=== PATIENT | female | born 1985 | race Caucasian/White ===

== ENCOUNTER 2017-10-04 06:33 | Inpatient (IN) | payer BC, OTHER ==
[2017-10-03 15:23] VITALS: BMI 23.5
[2017-10-04] MEDS ORDERED: PROPOFOL 20 ML ONE ×2 (07:24)
[2017-10-04] MEDS ORDERED: MIDAZOLAM HCL 2 MG/2 ML SINGLE DOSE VIAL ONE (07:24)
--- NOTE | 2017-10-04 07:47 | HP ---
History & Physical Update - History History: No Change - Physical Physical: No Change - Assessment Assessment: No Change - Plan Plan: No Change (No changes since 10/02/17 Consent signed and witnessed)
[2017-10-04] MEDS ORDERED: OXYTOCIN 10 UNITS/ML VIAL ONE ×2 (08:13→08:48)
[2017-10-04] MEDS ORDERED: DEXAMETHASONE SOD PHOSPHATE 4 MG/1 ML VIAL ONE (08:14)
[2017-10-04] MEDS ORDERED: ceFAZolin SODIUM 1 GM VIAL ONE (08:29)
[2017-10-04] MEDS ORDERED: ceFAZolin SODIUM 1 GM VIAL IVPB ONE (08:30)
[2017-10-04] MEDS ORDERED: KETOROLAC TROMETHAMINE 30 MG/1 ML VIAL ONE (08:41)
--- NOTE | 2017-10-04 09:16 | OP ---
Operative Note - Note: Operative Date: 10/04/17 Pre-Operative Diagnosis: 32 yo with IVF , IUFD @ 17wks Operation: Dialation and evacuation Findings: Macerated parts, removed Post-Operative Diagnosis: Same as Pre-op Surgeon: Shani Plasencia [employer] Tanker Driver: Rogelio Cordero Anesthesiologist/DEALER SUPPORT TECHNICIAN: Sohan Thomason Anesthesia: General Specimens Removed: Products of conseption Estimated Blood Loss (mls): 1,000 Drains, Volume Out (mls): 100 Fluid Volume Replaced (mls): 1,300 Operative Report Dictated: Yes
[2017-10-04] MEDS ORDERED: oxyCODONE HCL 5 MG TABLET PO PRN (09:21)
[2017-10-04] MEDS ORDERED: ONDANSETRON 4 MG/2 ML VIAL IVPUSH PRN (09:21)
[2017-10-04] MEDS ORDERED: IBUPROFEN 800 MG/8 ML IJ IVPB PRN (09:21)
[2017-10-04] MEDS ORDERED: IBUPROFEN 600 MG TABLET (FP) PO PRN (09:21)
[2017-10-04] MEDS ORDERED: LACTATED RINGERS SOLUTION 1,000 ML IV SCH (09:30)
[2017-10-04] MEDS ORDERED: ELECTROLYTE-148 SOLN 1,000 ML IV SCH (09:30)
[2017-10-04 10:29] LABS: HEMATOCRIT 26.8 % (32.4-45.2); HEMOGLOBIN 8.7 GM/dL (10.7-15.3); MCH 27.4 pg (25.7-33.7); MCHC 32.5 g/dl (32.0-36.0); MEAN CELL VOLUME 84.2 fl (80-96); MEAN PLT VOLUME 7.9 fl (7.5-11.1); PLATELET COUNT 218 K/MM3 (134-434); RBC 3.18 M/mm3 (3.60-5.2); RDW 16.6 % (11.6-15.6)
[2017-10-04 11:50] LABS: INR 1.15 (0.82-1.09)
[2017-10-04] MEDS ORDERED: MISOPROSTOL 200 MCG TABLET NR ONE (12:00)
[2017-10-04 13:41] LABS: BASO % 0.1 % (0-2.0); EOS % 0.2 % (0-4.5); HEMATOCRIT 22.5 % (32.4-45.2); HEMOGLOBIN 7.4 GM/dL (10.7-15.3); LYMPH % 4.7 % (8-40); MCH 27.5 pg (25.7-33.7); MCHC 32.8 g/dl (32.0-36.0); MEAN CELL VOLUME 83.9 fl (80-96); MEAN PLT VOLUME 7.8 fl (7.5-11.1); MONO % 2.9 % (3.8-10.2); NEUT % 92.1 % (42.8-82.8); PLATELET COUNT 232 K/MM3 (134-434); RBC 2.68 M/mm3 (3.60-5.2); RDW 16.7 % (11.6-15.6); WHITE BLOOD COUNT 25.7 K/mm3 (4.0-10.0)
[2017-10-04 15:14] LABS: INR 1.15 (0.82-1.09)
[2017-10-04 15:17] LABS: ACTIVATED PTT 25.8 SECONDS (26.9-34.4)
--- NOTE | 2017-10-04 15:37 | PN ---
Progress Note (SOAP) - Subjective Chief Complaint: No complaints History of Present Illness: POD#1, s/p D&E with moderate vaginal bleeding, mild/evolving DIC. Pt is in PACU undergoing a blood transfusion. - Current Medications Current Medications: Active Medications Fentanyl (Sublimaze Injection -) 50 mcg IVPUSH [id number] PRN PRN Reason: PAIN-PACU ORDER X 4 DOSES ONLY Parenteral Electrolytes (Plasma-Lyte 148 -) 1,000 mls @ 125 mls/hr IV ASDIR OSCAR Lactated Ringer's (Lactated Ringers Solution) 1,000 mls @ 75 mls/hr IV ASDIR SOCAR Ibuprofen (Motrin -) 600 mg PO Q6H PRN PRN Reason: FEVER Ibuprofen (Caldolor Injection -) 800 mg IVPB Q6H PRN PRN Reason: PAIN LEVEL 1-5 Ondansetron HCl (Zofran Injection) 4 mg IVPUSH Q6H PRN PRN Reason: NAUSEA Oxycodone HCl (Roxicodone -) 5 mg PO Q4H PRN PRN Reason: PAIN LEVEL 6-10 - Objective Vital Signs: Vital Signs Temperature 97.6 F 10/04/17 09:18 Pulse Rate 70 10/04/17 13:00 Respiratory Rate 18 10/04/17 13:00 Blood Pressure 112/70 10/04/17 13:00 O2 Sat by Pulse Oximetry (%) 100 10/04/17 13:00 Constitutional: Yes: Well Nourished, No Distress, Calm Eyes: Yes: WNL, Conjunctiva Clear, EOM Intact HENT: Yes: WNL, Atraumatic, Normocephalic Neck: Yes: WNL, Supple, Trachea Midline Cardiovascular: Yes: WNL, Regular Rate and Rhythm Respiratory: Yes: WNL, Regular, CTA Bilaterally Gastrointestinal: Yes: WNL, Normal Bowel Sounds, Soft ...Rectal Exam: Yes: Deferred Genitourinary: Yes: Vaginal Bleeding (moderate) ....Post : Yes: Uterus firm, Uterus non-tender Breast(s): Yes: WNL Musculoskeletal: Yes: WNL Extremities: Yes: WNL Peripheral Pulses WNL: Yes Edema: No Integumentary: Yes: WNL Neurological: Yes: WNL, Alert, Oriented ...Motor Strength: Yes: WNL Psychiatric: Yes: WNL, Alert, Oriented Labs Lab Results: CBC, BMP 10/04/17 13:00 Assessment/Plan 32 yo P0 s/p D&E for IUFD at 17 wks with hemorrhage, anemia, and evolving DIC. 1. postop- stable and appears clinically well. 2. DIC- appears mild, but may be contributing to bleeding. Plan to: Follow serial labs Strict I/O, Ledbetter cath Consult Heme/Onc for blood products replacement 3. Anemia- continue PRBC 4. Admit to Telemetry. No need for ICU at this time.
[2017-10-04] MEDS ORDERED: D5W-LR W/ 20 UNITS OXYTOCIN 20 UNIT/1,000 ML INFUS.BAG IV SCH (16:00)
[2017-10-04] MEDS ORDERED: METHYLERGONOVINE MALEATE 0.2 MG/1 ML AMP IM PRN (16:05)
--- NOTE | 2017-10-04 18:11 | CONSULT ---
Consult Consult Specialty:: Hematology - History of Present Illness History of Present Illness: 32 yo P0 s/p D&E for IUFD at 17 wks with hemorrhage, anemia, and evolving DIC. Hematology consulted for the above. - Past Medical History ...LMP: 06/01/17 - Alcohol/Substance Use Hx Alcohol Use: No - Smoking History Smoking history: Never smoked Home Medications - Allergies Allergies/Adverse Reactions: Allergies Allergy/AdvReac Type Severity Reaction Status Date / Time No Known Allergies Allergy Verified 10/04/17 07:12 - Home Medications Home Medications: Ambulatory Orders Prenat 115/Iron Fum/Folic/Dss [ 19 Tablet] 1 each PO DAILY 10/03/17 Methylergonovine Maleate [Methergine] 0.2 mg PO TID 2 Days #6 tablet 10/04/17 metroNIDAZOLE [Flagyl -] 500 mg PO BID 5 Days #10 tablet 10/04/17 Review of Systems - Review of Systems Gastrointestinal: reports: Abdominal Pain Genitourinary: reports: Vaginal Bleeding Hematology/Lymphatic: reports: Excessive Bleeding Physical Exam Vital Signs: Vital Signs Temperature 97.6 F 10/04/17 09:18 Pulse Rate 72 10/04/17 16:30 Respiratory Rate 17 10/04/17 16:30 Blood Pressure 100/58 10/04/17 16:30 O2 Sat by Pulse Oximetry (%) 100 10/04/17 16:30 Constitutional: Yes: Other (pale, anxious) Eyes: Yes: Other (pale) HENT: Yes: WNL Neck: Yes: WNL Cardiovascular: Yes: WNL Respiratory: Yes: WNL Gastrointestinal: Yes: Normal Bowel Sounds, Soft, Tenderness Musculoskeletal: Yes: WNL Extremities: Yes: WNL Edema: No Neurological: Yes: Alert, Oriented Psychiatric: Yes: Alert Labs: CBC, BMP 10/04/17 13:00 INR, PTT INR 1.15 (0.82-1.09) H 10/04/17 14:35 Fibrinogen 112.0 mg/dL (238-498) L 10/04/17 14:35 Assessment/Plan Post-OP DIC s/p IUFD at 17 weeks D/E done, underlying cause treated Product replacement : s'/p One unit PRBC 2 U Cryo , d/w blood bank, products available. PT/PTT/Platelets : stable , to receive FFP. need secure second IV site CLOSE monitoring of Labs ( q4-6hrs ) Monitor for fluid overload in the setting of the above. d.w pt in detail d/w RN and CUSTOMER ACCOUNT EXECUTIVE physician . will follow closely.
[2017-10-05 00:59] LABS: BASO % 0.3 % (0-2.0); EOS % 0.4 % (0-4.5); HEMATOCRIT 23.2 % (32.4-45.2); MCH 28.9 pg (25.7-33.7); MCHC 34.8 g/dl (32.0-36.0); MONO % 8.2 % (3.8-10.2); NEUT % 78.1 % (42.8-82.8); PLATELET COUNT 182 K/MM3 (134-434); RBC 2.79 M/mm3 (3.60-5.2); RDW 15.7 % (11.6-15.6); WHITE BLOOD COUNT 14.4 K/mm3 (4.0-10.0)
[2017-10-05 01:15] LABS: INR 1.04 (0.82-1.09); PROTHROMBIN TIME (PATIENT) 11.8 SEC (9.98-11.88)
[2017-10-05 01:18] LABS: ACTIVATED PTT 27.4 SECONDS (26.9-34.4)
--- NOTE | 2017-10-05 05:27 | HOSP ---
Subjective - Review of Symptoms Events since last encounter: Called by RN who reports that while pt was receiving her 2nd unit of FFP she started itching and developed a rash. Subjective: Pt denies any SOB, trouble breathing, chest or back pain. States rash is improved s/p receiving benadryl 15-20 min ago. Itching is slowing improving. Physical Examination Vital Signs: Vital Signs Temperature 98.6 F 10/05/17 02:00 Pulse Rate 60 10/05/17 02:00 Respiratory Rate 18 10/05/17 02:00 Blood Pressure 104/51 10/05/17 02:00 O2 Sat by Pulse Oximetry (%) 100 10/04/17 17:15 Constitutional: Yes: Calm Cardiovascular: Yes: Regular Rate and Rhythm, S1, S2. No: Murmur, Rub Respiratory: Yes: CTA Bilaterally Gastrointestinal: Yes: Normal Bowel Sounds, Soft Integumentary: Yes: Rash (erythematous, indurated, patchy rash to skin, whole body) Labs: CBC, BMP 10/05/17 00:30 Hospitalist Encounter Assessment: Rash while receiving transfusion - r/o transfusion reaction, protocol followed - benadryl given IVP - RN to notify PCP.
--- NOTE | 2017-10-05 08:43 | PN ---
Progress Note (short form) - Note Progress Note: Anesthesia postop note 32 y/o F s/p GA for D&E POD#1, vss, aaox3, pain well controlled, eating breakfast No anesthesia complications.
[2017-10-05 08:55] LABS: BASO % 0.4 % (0-2.0); EOS % 1.1 % (0-4.5); HEMATOCRIT 24.1 % (32.4-45.2); HEMOGLOBIN 8.6 GM/dL (10.7-15.3); LYMPH % 19.1 % (8-40); MCH 29.7 pg (25.7-33.7); MCHC 35.8 g/dl (32.0-36.0); MEAN CELL VOLUME 82.8 fl (80-96); MEAN PLT VOLUME 7.5 fl (7.5-11.1); MONO % 6.7 % (3.8-10.2); NEUT % 72.7 % (42.8-82.8); PLATELET COUNT 177 K/MM3 (134-434); RBC 2.91 M/mm3 (3.60-5.2); WHITE BLOOD COUNT 10.7 K/mm3 (4.0-10.0)
[2017-10-05 08:57] LABS: INR 0.98 (0.82-1.09); PROTHROMBIN TIME (PATIENT) 11.1 SEC (9.98-11.88)
[2017-10-05 09:00] LABS: ACTIVATED PTT 26.5 SECONDS (26.9-34.4)
--- NOTE | 2017-10-05 10:29 | PN ---
Progress Note (short form) - Note Progress Note: Patient seen and examined. Overnight events noted. reaction to FFP Now back to baseline. vaginal bleeding moderate. No petechiae or bleeding from IV sites reported. O/E: Constitutional: Yes: NAD Eyes: Yes: Other (pale) HENT: Yes: WNL Neck: Yes: WNL Cardiovascular: Yes: WNL Respiratory: Yes: WNL Gastrointestinal: Yes: Normal Bowel Sounds, Soft, Tenderness Musculoskeletal: Yes: WNL Extremities: Yes: WNL Edema: No Neurological: Yes: Alert, Oriented Skin: No petechiae Labs: Temp Pulse Resp BP Pulse Ox 98.1 F 68 20 102/58 100 10/05/17 06:00 10/05/17 06:00 10/05/17 06:00 10/05/17 06:00 10/04/17 17:15 CBC, BMP 10/05/17 08:20 Current Medications Generic Name Dose Route Start Last Admin Trade Name Freq PRN Reason Stop Dose Admin Dextrose/Lactated Ringer's 20 unit in 1,000 mls @ 125 mls/hr 10/04/17 16:00 10/04/17 22:09 Pitocin 20 Units In D5-Lr - IV 10/05/17 23:59 125 mls/hr ASDIR OSCAR Administration Ibuprofen 600 mg 10/04/17 09:21 Motrin - PO Q6H PRN FEVER Ibuprofen 800 mg 10/04/17 09:21 Caldolor Injection - IVPB Q6H PRN PAIN LEVEL 1-5 Methylergonovine Maleate 0.2 mg 10/04/17 16:05 10/04/17 16:30 Methergine Injection - IM 0.2 mg Q4H PRN Administration EXCESSIVE BLEEDING Ondansetron HCl 4 mg 10/04/17 09:21 Zofran Injection IVPUSH Q6H PRN NAUSEA Oxycodone HCl 5 mg 10/04/17 09:21 Roxicodone - PO Q4H PRN PAIN LEVEL 6-10 Early DIC; now resolving ( s/p IUFD s/p D/E ) s/p PRBC/FFP/Cryo Now fibrinogen consistently >150, no further cryo repeat labs in the afternoon. CBC in the afternoon, if hgd down trend <8, will give one more unit of PRBC will pre-medicate with further product administration. leucocytosis: afebrile, monitor , likely reactive d/w pt./RN
--- NOTE | 2017-10-05 10:43 | PN ---
Progress Note (SOAP) - Subjective History of Present Illness: Patient without acute complaints. Had episode of itching overnight during transfusion of FFP, s/p evaluation by hospitalist - had transfusion reaction, s/p IV benadryl. Reports continues to have mild L eye swelling, otherwise doing well. Denies any shortness of breath or difficulty breathing Reports tolerating oral intake without nausea or vomiting. Ambulating without dizziness. Denies fevers or chills. Passing flatus. Denies pain. Scant bleeding. - Current Medications Current Medications: Active Medications Dextrose/Lactated Ringer's (Pitocin 20 Units In D5-Lr -) 20 unit in 1,000 mls @ 125 mls/hr IV ASDIR OSCAR Stop: 10/05/17 23:59 Last Admin: 10/04/17 22:09 Dose: 125 mls/hr Ibuprofen (Motrin -) 600 mg PO Q6H PRN PRN Reason: FEVER Ibuprofen (Caldolor Injection -) 800 mg IVPB Q6H PRN PRN Reason: PAIN LEVEL 1-5 Methylergonovine Maleate (Methergine Injection -) 0.2 mg IM Q4H PRN PRN Reason: EXCESSIVE BLEEDING Last Admin: 10/04/17 16:30 Dose: 0.2 mg Ondansetron HCl (Zofran Injection) 4 mg IVPUSH Q6H PRN PRN Reason: NAUSEA Oxycodone HCl (Roxicodone -) 5 mg PO Q4H PRN PRN Reason: PAIN LEVEL 6-10 - Objective Vital Signs: Vital Signs Temperature 98.1 F 10/05/17 06:00 Pulse Rate 68 10/05/17 06:00 Respiratory Rate 20 10/05/17 06:00 Blood Pressure 102/58 10/05/17 06:00 O2 Sat by Pulse Oximetry (%) 100 10/04/17 17:15 Constitutional: Yes: Well Nourished, No Distress, Calm Cardiovascular: Yes: Regular Rate and Rhythm Respiratory: Yes: Regular, CTA Bilaterally Gastrointestinal: Yes: Normal Bowel Sounds, Soft. No: Tenderness Genitourinary: Yes: Vaginal Bleeding (mild pink blood on pad, no bleeding on palpation of fundus) Peripheral Pulses WNL: Yes Edema: No Neurological: Yes: Alert, Oriented ...Motor Strength: Yes: WNL Psychiatric: Yes: Alert, Oriented Labs Lab Results: CBC, BMP 10/05/17 08:20 Assessment/Plan 32 yo s/p D&E for IUFD at 17 wk complicated by hemorrhage/early DIC s/p 2 u PRBC , 2 uFFP,2 cryoprecipitate 1. Appreciate Hematology consult 2. Anemia / Vaginal bleeding - Vaginal bleeding stable, H/H currently stable Will monitor afternoon labs, plan for transfusion per Heme 3. - s/p [place] with strict I/o Plan for DC whatley today 4. Will continue to monitor
[2017-10-05 13:56] LABS: BASO % 0.4 % (0-2.0); EOS % 1.7 % (0-4.5); HEMOGLOBIN 8.8 GM/dL (10.7-15.3); LYMPH % 19.1 % (8-40); MEAN PLT VOLUME 7.6 fl (7.5-11.1); MONO % 7.2 % (3.8-10.2); NEUT % 71.6 % (42.8-82.8); PLATELET COUNT 189 K/MM3 (134-434); RBC 3.01 M/mm3 (3.60-5.2); RDW 16.2 % (11.6-15.6); WHITE BLOOD COUNT 11.2 K/mm3 (4.0-10.0)
[2017-10-05 14:07] LABS: INR 0.94 (0.82-1.09); PROTHROMBIN TIME (PATIENT) 10.6 SEC (9.98-11.88)
[2017-10-05 14:16] VITALS: BP 97/61; PULSE 74; TEMP 98.2
--- NOTE | 2017-10-06 09:19 | PATH ---
Surgical Pathology Report Patient Name: MI GRANADOS Med. Rec. #: [id number] /Age/Gender: 1985 (Age: 32) / F Account: [id number] Location: 4 W TELEMETRY U Taken: 10/04/2017 Received: 10/04/2017 Reported: 10/06/2017 Physicians: Shani Plasencia M.D. Specimen(s) Received PRODUCTS OF CONCEPTION Clinical History Intrauterine demise 17 weeks Final Diagnosis UTERINE CONTENTS, EVACUATION: CHORIONIC VILLI AND PORTIONS OF SOMATIC TISSUE CONSISTENT WITH PRODUCTS OF CONCEPTION, 17 WEEKS GESTATIONAL AGE BY HISTORY. Electronically Signed Karsten Kee M.D. Gross Description Received in formalin labelled "products of conception" is partially 550 gram aggregate of clotted blood, hemorrhagic tissue fragments, and portions of somatic tissue. No grossly hydropic areas are identified. [employer]en[employer] Admin sections are submitted in 4 cassettes. [facility]/10/04/2017 [facility]/10/04/2017
--- NOTE | 2017-10-09 13:00 | OP ---
DATE OF OPERATION: 10/04/2017 PREOPERATIVE DIAGNOSIS: A 32-year-old with in vitro fertilization , intrauterine demise at 17 weeks. OPERATION: Dilation and evacuation. POSTOPERATIVE DIAGNOSIS: A 32-year-old with in vitro fertilization , intrauterine demise at 17 weeks. FINDINGS: Macerated fetus. SURGEON: Shani Plasencia MD MEDIA RELATIONS SPECIALIST: Rogelio Cordero MD ANESTHESIOLOGIST: Sohan Thomason DO ANESTHESIA: General. SPECIMENS: Removed products of conception. DESCRIPTION OF OPERATIVE PROCEDURE: After assuring informed consent, the patient was brought to the operating room where she was placed in dorsal lithotomy position. Perineum and vagina were prepped in sterile fashion and draped. Cervix was gradually dilated to accommodate 12-gauge plastic curette. The personnel technician was present in the operating room, and the entire procedure was sonographically guided. The plastic curette was introduced into the uterus, and suction was activated. Intrauterine contents were aspirated, removed with the polyp forceps, and the uterus was suctioned again. All of that was performed under direct sonographic guidance. Subsequently, sharp curettage was performed to assure that the uterus was empty, and the uterus was suctioned once more with plastic curette. The products of conception were sent for pathology. Pitocin was administered in the operating room as well as the Methergine. Estimated blood loss was 1000 mL. The patient received 1300 mL of IV fluids and drained 100 mL of urine. The uterus was firm and contracted at the end of the procedure. All instruments and sponges were removed from the vagina and the cervix, which was previously articulated with a single-tooth tenaculum. The patient was brought to the recovery room in stable condition. Emily [id number]
== END 2017-10-05 17:02 | disposition home or self-care (01) | DRG 767 ==
LOC: JASU-SURG 06:33 → JSAMEDAYSX 15:31 → J4W 17:45
PROVIDERS: ADMIT Obstetrics & Gynecology; ATTEND Obstetrics & Gynecology
PROC: 30233K1 Transfusion of Nonautologous Frozen Plasma into Peripheral Vein, Percutaneous Approach (ICD-10-PCS; 2017-10-04)
PROC: 30233N1 Transfusion of Nonautologous Red Blood Cells into Peripheral Vein, Percutaneous Approach (ICD-10-PCS; 2017-10-04)
PROC: 10D17ZZ Extraction of Products of Conception, Retained, Via Natural or Artificial Opening (ICD-10-PCS; principal; 2017-10-04 07:30)
DX: O36.4XX0 Maternal care for intrauterine death, not applicable or unspecified (principal); Z37.1 Single stillbirth; O72.1 Other immediate postpartum hemorrhage; Z3A.17 17 weeks gestation of pregnancy; D64.9 Anemia, unspecified; H02.846 Edema of left eye, unspecified eyelid; T80.89XA Other complications following infusion, transfusion and therapeutic injection, initial encounter; R21 Rash and other nonspecific skin eruption
CPT/HCPCS: 36415; 36430; 36511; 76856-TC; 76998-TC; 83615; 85025; 85027; 85384; 85610; 85730; 86078; 86850; 86900; 86901; 86922; 88305-TC; 94760; P9012; P9017; P9038; P9058

== ENCOUNTER 2018-12-02 18:50 | Inpatient (IN) | payer BC | END 2018-12-03 20:29 | disposition home or self-care (01) | LOC: JLDR 18:50 ==

== ENCOUNTER 2018-12-10 19:00 | Inpatient (IN) | payer BC, OTHER | END 2018-12-13 14:00 | disposition home or self-care (01) | LOC: JLDR 19:00 → J3W 12-11 14:17 ==

== ENCOUNTER 2023-02-22 23:15 | Inpatient (IN) | payer BC, OTHER ==
[2023-02-23] MEDS ORDERED: OXYTOCIN 30 UNITS in 0.9% NS 30 UNIT/500 ML INFUS.BAG IVPB SCH (01:30)
[2023-02-23] MEDS: ELECTROLYTE-148 SOLN 1,000 ML IV SCH ×2 (02:00→06:30)
[2023-02-23] MEDS ORDERED: OXYTOCIN 30 UNITS in 0.9% NS 30 UNIT/500 ML INFUS.BAG IVPB ONE (02:31)
[2023-02-23 03:25] LABS: BASO % 0.4 % (0-2.0); EOS % 0.7 % (0-4.5); HEMATOCRIT 31.5 % (32.4-45.2); LYMPH % 21.1 % (8-40); MCH 31.6 pg (25.7-33.7); MEAN CELL VOLUME 90.1 fl (80-96); MEAN PLT VOLUME 9.6 fl (7.5-11.1); MONO % 8.5 % (3.8-10.2); NEUT % 69.3 % (42.8-82.8); PLATELET COUNT 163 10^3/uL (134-434); RBC 3.49 M/mm3 (3.60-5.2); RDW 13.4 % (11.6-15.6); WHITE BLOOD COUNT 10.1 K/mm3 (4.0-10.0)
[2023-02-23 03:39] LABS: INR 0.91 (0.83-1.09); PROTHROMBIN TIME (PATIENT) 10.6 SEC (9.7-13.0)
[2023-02-23 03:42] LABS: ACTIVATED PTT 28.4 SECONDS (25.2-36.5)
[2023-02-23 03:51] LABS: POTASSIUM 3.9 mmol/L (3.5-5.1)
[2023-02-23 03:52] LABS: CALCIUM 8.3 mg/dL (8.5-10.1)
[2023-02-23 03:53] LABS: BLOOD UREA NITROGEN 11.5 mg/dL (7-18)
[2023-02-23 03:56] LABS: CREATININE 0.6 mg/dL (0.55-1.3)
[2023-02-23 04:50] LABS: HIV INTERPRETATION NEGATIVE (NEGATIVE)
[2023-02-23 06:13] VITALS: BMI 30.2
[2023-02-23] MEDS ORDERED: PHENYLEPHRINE HCL 10 MG/1 ML SINGLE DOSE VIAL ONE (08:08)
[2023-02-23] MEDS ORDERED: ONDANSETRON 4 MG/2 ML VIAL ONE (08:08)
[2023-02-23] MEDS ORDERED: KETOROLAC TROMETHAMINE 60 MG/2 ML VIAL ONE (08:08)
[2023-02-23] MEDS ORDERED: morphine SULFATE/PF 1 MG/2 ML (2cc Syringe - QUVA) ONE (08:08)
[2023-02-23] MEDS ORDERED: OXYTOCIN 10 UNITS/ML VIAL ONE (08:08)
[2023-02-23] MEDS ORDERED: FENTANYL CITRATE/PF 50 MCG/ML VIAL ONE (08:09)
[2023-02-23] MEDS ORDERED: ceFAZolin SODIUM 1 GM VIAL ONE (08:31)
[2023-02-23 09:37] LABS: CORD BASE EXCESS -5.6 mmol/L (0-2); CORD HCO3 23.1 mmHg (20-29); CORD PCO2 57.5 mmHg (30-78); CORD pH 7.221 (7.14-7.44)
[2023-02-23] MEDS ORDERED: SENNOSIDES/DOCUSATE COMBO (SENNA PLUS) TABLET (UD) PO PRN (09:40)
[2023-02-23] MEDS ORDERED: ACETAMINOPHEN 325 MG TABLET (FP) PO PRN (09:40)
[2023-02-23] MEDS ORDERED: ONDANSETRON 4 MG/2 ML VIAL IVPB PRN (09:40)
[2023-02-23] MEDS ORDERED: IBUPROFEN 800 MG/8 ML IJ IVPB PRN (09:40)
[2023-02-23] MEDS ORDERED: oxyCODONE HCL 5 MG TABLET PO PRN (09:40)
[2023-02-23] MEDS ORDERED: ACETAMINOPHEN 1000 MG/100 ML BAG IVPB PRN (09:40)
[2023-02-23 09:41] LABS: CORD HCO3 25.5 mmHg (20-29); CORD PCO2 81.2 mmHg (30-78); CORD pH 7.115 (7.14-7.44)
[2023-02-23] MEDS ORDERED: ENOXAPARIN NA (PORCINE) 40 MG/0.4 ML DISP.SYRIN SQ SCH (10:00)
[2023-02-23] MEDS ORDERED: OXYTOCIN 20 UNITS in 0.9% NS 20 UNIT/1,000 ML INFUS.BAG IV ONE (10:03)
[2023-02-23] MEDS: OXYTOCIN 20 UNITS in 0.9% NS 20 UNIT/1,000 ML INFUS.BAG IV SCH ×2 (10:10→20:11)
[2023-02-23] MEDS: LEVOTHYROXINE NA 75 MCG TABLET (FP) PO SCH (12:06)
[2023-02-23] MEDS: IBUPROFEN 600 MG TABLET (FP) PO PRN (22:05)
[2023-02-23] MEDS: SIMETHICONE 80 MG TAB.CHEW (FP) PO PRN (22:05)
[2023-02-24] MEDS: IBUPROFEN 600 MG TABLET (FP) PO PRN ×6 (01:35→22:44)
[2023-02-24] MEDS: LEVOTHYROXINE NA 75 MCG TABLET (FP) PO SCH (06:03)
[2023-02-24 08:56] LABS: BASO % 0.3 % (0-2.0); EOS % 1.6 % (0-4.5); HEMATOCRIT 24.5 % (32.4-45.2); HEMOGLOBIN 8.3 GM/dL (10.7-15.3); LYMPH % 12.1 % (8-40); MCH 31.4 pg (25.7-33.7); MCHC 33.8 g/dl (32.0-36.0); MEAN CELL VOLUME 92.7 fl (80-96); MEAN PLT VOLUME 9.3 fl (7.5-11.1); PLATELET COUNT 147 10^3/uL (134-434); RBC 2.64 M/mm3 (3.60-5.2); RDW 13.3 % (11.6-15.6); WHITE BLOOD COUNT 9.2 K/mm3 (4.0-10.0)
[2023-02-24] MEDS: ENOXAPARIN NA (PORCINE) 40 MG/0.4 ML DISP.SYRIN SQ SCH (09:17)
[2023-02-24] MEDS ORDERED: BISACODYL 10 MG SUPP.RECT RC PRN (09:41)
[2023-02-25] MEDS: IBUPROFEN 600 MG TABLET (FP) PO PRN ×4 (06:28→23:07)
[2023-02-25] MEDS: LEVOTHYROXINE NA 75 MCG TABLET (FP) PO SCH (06:28)
[2023-02-25] MEDS: ENOXAPARIN NA (PORCINE) 40 MG/0.4 ML DISP.SYRIN SQ SCH (10:51)
[2023-02-25] MEDS: SIMETHICONE 80 MG TAB.CHEW (FP) PO PRN ×3 (11:47→23:07)
[2023-02-26] MEDS: IBUPROFEN 600 MG TABLET (FP) PO PRN ×3 (06:17→15:20)
[2023-02-26] MEDS: LEVOTHYROXINE NA 75 MCG TABLET (FP) PO SCH (06:18)
[2023-02-26] MEDS: SIMETHICONE 80 MG TAB.CHEW (FP) PO PRN (10:10)
[2023-02-26] MEDS: ENOXAPARIN NA (PORCINE) 40 MG/0.4 ML DISP.SYRIN SQ SCH (10:11)
[2023-02-26 10:18] VITALS: BP 109/68; PULSE 80; RESP 18; TEMP 99.1
== END 2023-02-26 16:15 | disposition home or self-care (01) | DRG 788 ==
LOC: JLDR 23:15 → J3W 02-23 12:20
PROVIDERS: ADMIT Obstetrics & Gynecology; ATTEND Obstetrics & Gynecology
PROC: 10D00Z1 Extraction of Products of Conception, Low, Open Approach (ICD-10-PCS; principal; 2023-02-23)
DX: O77.9 Labor and delivery complicated by fetal stress, unspecified (principal); O99.02 Anemia complicating childbirth; D64.9 Anemia, unspecified; O69.81X0 Labor and delivery complicated by cord around neck, without compression, not applicable or unspecified; O77.0 Labor and delivery complicated by meconium in amniotic fluid; N73.6 Female pelvic peritoneal adhesions (postinfective); O99.284 Endocrine, nutritional and metabolic diseases complicating childbirth; E03.9 Hypothyroidism, unspecified; Z3A.38 38 weeks gestation of pregnancy; Z37.0 Single live birth
CPT/HCPCS: 36415; 36600; 80048; 82803; 85025; 85610; 85730; 86780; 86850; 86900; 86901; 87389; 88307-TC; 94010